=== PATIENT | male | born 1945 | race Caucasian/White ===

== ENCOUNTER 2018-07-26 09:19 | Day surgery (SDC) | payer MEDICARE, OTHER ==
[~2018-07-26] VITALS: Ht 172.7 cm; Wt 75.8 kg
[2018-07-26] VITALS (9 sets, daily range): BP systolic 119–143; BP diastolic 71–87
[2018-07-26] MEDS ORDERED: diphenhydrAMINE 25mg capsule PO PRN (09:45)
[2018-07-26] MEDS ORDERED: sod bicarbonate 150mEq in D5W 1,150 ML IV ONE (09:45)
[2018-07-26 10:38] LABS: BASOPHILS % (AUTO) 0.4 % (0-1); EOSINOPHILS # (AUTO) 0.2 X10'3 (0-0.9); EOSINOPHILS % (AUTO) 3.2 % (0-6); HEMATOCRIT 48.4 % (42.0-52.0); HEMOGLOBIN 16.4 g/dl (14.0-17.9); LYMPHOCYTES # (AUTO) 1.4 X10'3 (1.1-4.8); MEAN CORPUSCULAR VOLUME 94.2 FL (78-98); MEAN PLATELET VOLUME 7.5 FL (7.4-10.4); MONOCYTES # (AUTO) 0.6 X10'3 (0-0.9); MONOCYTES % (AUTO) 10.1 % (2-12); NEUTROPHILS % (AUTO) 64.3 % (42-75); PLATELET COUNT 168 X10'3 (140-440); RED BLOOD COUNT 5.13 X10'6 (4.70-6.10); RED CELL DISTRIBUTION WIDTH 13.6 % (11.5-14.5); WHITE BLOOD COUNT 6.2 X10'3 (4.5-11.0)
[2018-07-26 10:48] LABS: ALBUMIN 3.8 G/DL (3.4-5.0); ANION GAP 11 (8-16); BLOOD UREA NITROGEN 24 MG/DL (7-18); BUN/CREATININE RATIO 21.6 (5.4-32.0); CALCIUM 9.2 MG/DL (8.5-10.1); CHLORIDE 104 MMOL/L (99-107); CREATININE 1.11 MG/DL (0.60-1.10); GLUCOSE 105 MG/DL (70-104); MAGNESIUM 2.3 MG/DL (1.5-2.4); POTASSIUM 4.5 MMOL/L (3.5-5.1); SODIUM 142 MMOL/L (135-145); TOTAL CARBON DIOXIDE 27.1 MMOL/L (24-32); eGFR 65 ML/MIN
[2018-07-26 10:49] LABS: INR 1.2 INR; PROTHROMBIN TIME 11.6 SECONDS (9.0-12.0)
[2018-07-26] MEDS ORDERED: iohexol 350 MG/1 ML 200ml bottle ONE (11:18)
[2018-07-26] MEDS ORDERED: LIDOcaine 1% (10mg/ml)w/preservative injection 20ml MDV ONE (11:18)
[2018-07-26] MEDS ORDERED: [UNRECOGNIZED DRUG - OTHER] PO (11:26)
[2018-07-26] MEDS ORDERED: TEST5GEL2 TOP (11:26)
[2018-07-26] MEDS ORDERED: ATOR10TA PO (11:26)
[2018-07-26] MEDS ORDERED: RIVA20TA PO (11:26)
[2018-07-26] MEDS ORDERED: MAGN400C PO (11:26)
[2018-07-26] MEDS ORDERED: FAMO40TA73 PO (11:26)
[2018-07-26] MEDS ORDERED: LISI-604 PO (11:26)
[2018-07-26] MEDS ORDERED: EZET10TA13 PO (11:26)
[2018-07-26] MEDS ORDERED: ASPI-1265 PO (11:26)
[2018-07-26] MEDS ORDERED: midazolam 2 mg/2 ml injection ONE ×2 (11:48→13:38)
[2018-07-26] MEDS ORDERED: proCHLORperazine 10 MG/2 ml inj ONE (11:48)
[2018-07-26] MEDS ORDERED: fentaNYL/PF 50MCG/1 ML 2ML syringe ONE (11:49)
[2018-07-26] MEDS ORDERED: heparin 1,000unit/ml 10ml vial 10 ML ONE (12:12)
== END 2018-07-26 17:48 | disposition home or self-care (01) ==
LOC: SSTAY O 09:19
PROVIDERS: ATTEND Internal Medicine Cardiovascular Disease
DX: I70.212 Atherosclerosis of native arteries of extremities with intermittent claudication, left leg (principal); I25.10 Atherosclerotic heart disease of native coronary artery without angina pectoris; I10 Essential (primary) hypertension; I25.2 Old myocardial infarction; Z95.5 Presence of coronary angioplasty implant and graft; I25.5 Ischemic cardiomyopathy; Z79.01 Long term (current) use of anticoagulants
CPT/HCPCS: 36415; 37227; 80048; 83735; 85025; 85610; 99152; 99153; C1876; J0780; J1644; J2001; J2250; J3010; Q0163; Q9967; A4620; C1714; C1725; C1760; C1769; C1887; C1894; C2623

== ENCOUNTER 2022-03-21 06:30 | Day surgery (SDC) | payer MEDICARE, OTHER ==
[~2022-03-21] VITALS: Ht 170.2 cm; Wt 71.5 kg
[2022-03-21] VITALS (9 sets, daily range): BP systolic 119–149; BP diastolic 70–90
[~2022-03-21 06:30] MED LIST: ASPI-1265 PO; ATOR10TA PO; FAMO40TA73 PO; LISI5TAB22 PO; MAGN400C PO; RIVA20TA PO; TEST5GEL2 TOP; ZET10T PO; [UNRECOGNIZED DRUG - OTHER] PO
[2022-03-21] MEDS ORDERED: cefazolin/dext.iso 2gm/100ml 100 ML IV ONE (06:50)
[2022-03-21] MEDS ORDERED: VANCOMYCIN 1,500MG in normal saline IV soln 300 ML IV ONE (06:55)
[2022-03-21] MEDS ORDERED: CLOP75TA15 PO (07:10)
[2022-03-21] MEDS ORDERED: LOSA25TA41 PO (07:10)
[2022-03-21] MEDS ORDERED: BISO10TA6 (07:11)
[2022-03-21] MEDS ORDERED: SILD50TA PO ×2 (07:13→07:21)
[2022-03-21] MEDS ORDERED: MULT-1085 PO (07:14)
[2022-03-21] MEDS ORDERED: VITAMIN D (07:15)
[2022-03-21] MEDS ORDERED: ASCO-139 PO (07:16)
[2022-03-21] MEDS ORDERED: UBID100C16 PO (07:16)
[2022-03-21 07:35] LABS: BASOPHILS % (AUTO) 0.6 % (0-1); EOSINOPHILS # (AUTO) 0.4 X10'3 (0-0.9); EOSINOPHILS % (AUTO) 5.8 % (0-6); HEMATOCRIT 45.5 % (42.0-52.0); HEMOGLOBIN 15.2 g/dl (14.0-17.9); LYMPHOCYTES # (AUTO) 1.8 X10'3 (1.1-4.8); LYMPHOCYTES % (AUTO) 24.7 % (21-51); MEAN CORPUSCULAR HEMOGLOBIN 31.6 PG (27.0-31.0); MEAN CORPUSCULAR HGB CONC 33.3 g/dL (33.0-36.5); MEAN PLATELET VOLUME 7.5 FL (7.4-10.4); MONOCYTES # (AUTO) 0.8 X10'3 (0-0.9); NEUTROPHILS # (AUTO) 4.2 X10'3 (1.8-7.7); NEUTROPHILS % (AUTO) 57.9 % (42-75); PLATELET COUNT 173 X10'3 (140-440); RED CELL DISTRIBUTION WIDTH 13.7 % (11.5-14.5); WHITE BLOOD COUNT 7.3 X10'3 (4.5-11.0)
[2022-03-21 07:58] LABS: ALBUMIN 3.9 G/DL (3.4-5.0); ANION GAP 9 (8-16); BLOOD UREA NITROGEN 28 MG/DL (7-18); BUN/CREATININE RATIO 24.1 (5.4-32.0); CHLORIDE 104 MMOL/L (99-107); CHOL/HDL RATIO 2.2 (0.00-4.99); CHOLESTEROL 88 MG/DL (0-200); CREATININE 1.16 MG/DL (0.60-1.10); GLUCOSE 102 MG/DL (70-104); HDL CHOLESTEROL 40 MG/DL (35-60); LDL CHOLESTEROL 39 MG/DL (50-100); MAGNESIUM 2.5 MG/DL (1.5-2.4); POTASSIUM 4.4 MMOL/L (3.5-5.1); SODIUM 139 MMOL/L (135-145); TRIGLYCERIDES 89 MG/DL (20-135); eGFR 61 ML/MIN
[2022-03-21] MEDS ORDERED: LIDOCAINE 2% w/EPI 1:100:000 30mL injection MDV**cath lab 1 only ONE (08:46)
[2022-03-21] MEDS ORDERED: fentaNYL/PF 50MCG/1 ML 2ML syringe ONE (08:46)
[2022-03-21] MEDS ORDERED: vancomycin 1,000mg inj ONE (08:46)
[2022-03-21] MEDS ORDERED: midazolam 1 mg/ML 2ml injection ONE ×2 (08:46→09:47)
[2022-03-21] MEDS ORDERED: normal saline 1,000 ML IV SCH (10:45)
[2022-03-21] MEDS ORDERED: diphenhydrAMINE 50 mg/ml inj IM ONE (11:20)
[2022-03-21] MEDS ORDERED: diphenhydrAMINE 50 mg/ml inj IV ONE (11:40)
== END 2022-03-21 12:52 | disposition home or self-care (01) ==
LOC: SSTAY O 06:30
PROVIDERS: ATTEND Internal Medicine Cardiovascular Disease
DX: Z45.02 Encounter for adjustment and management of automatic implantable cardiac defibrillator (principal); I42.0 Dilated cardiomyopathy; I25.5 Ischemic cardiomyopathy; I25.10 Atherosclerotic heart disease of native coronary artery without angina pectoris; I42.9 Cardiomyopathy, unspecified; Z79.01 Long term (current) use of anticoagulants; Z79.899 Other long term (current) drug therapy; E78.00 Pure hypercholesterolemia, unspecified; I73.9 Peripheral vascular disease, unspecified; Z98.890 Other specified postprocedural states; Z88.8 Allergy status to other drugs, medicaments and biological substances
CPT/HCPCS: 33264; 36415; 80048; 80061; 83735; 85025; 85610; 93005; 99152; 99153; C1882; J1200; J2250; J3010; J3370; J3490; J7030; J7040; A4620; A6258

== ENCOUNTER 2022-05-02 11:41 | Inpatient (IN) | payer MEDICARE, OTHER ==
[2022-04-30 12:04] LABS: BASOPHILS % (AUTO) 0.4 % (0-1); EOSINOPHILS # (AUTO) 0.3 X10'3 (0-0.9); EOSINOPHILS % (AUTO) 3.6 % (0-6); LYMPHOCYTES # (AUTO) 1.8 X10'3 (1.1-4.8); LYMPHOCYTES % (AUTO) 22.6 % (21-51); MEAN CORPUSCULAR HEMOGLOBIN 31.4 PG (27.0-31.0); MEAN CORPUSCULAR HGB CONC 33.3 g/dL (33.0-36.5); MEAN CORPUSCULAR VOLUME 94.3 FL (78-98); MEAN PLATELET VOLUME 7.6 FL (7.4-10.4); MONOCYTES # (AUTO) 0.8 X10'3 (0-0.9); MONOCYTES % (AUTO) 10.1 % (2-12); NEUTROPHILS # (AUTO) 5.1 X10'3 (1.8-7.7); NEUTROPHILS % (AUTO) 63.3 % (42-75); PRE OP HEMATOCRIT 46.4 % (42.0-52.0); PRE OP HEMOGLOBIN 15.5 g/dL (14.0-17.9); PRE OP PLATELET COUNT 188 X10'3 (140-440); RED BLOOD COUNT 4.92 X10'6 (4.70-6.10); RED CELL DISTRIBUTION WIDTH 13.6 % (11.5-14.5)
[2022-04-30 12:06] LABS: ALBUMIN/GLOBULIN RATIO 1.3 (1.1-1.5); ALKALINE PHOSPHATASE 50 IU/L (46-116); BLOOD UREA NITROGEN 26 MG/DL (7-18); BUN/CREATININE RATIO 25.2 (5.4-32.0); CHLORIDE 104 MMOL/L (99-107); CREATININE 1.03 MG/DL (0.60-1.10); PRE OP ALT 40 U/L (30-65); PRE OP ANION GAP 9 (8-16); PRE OP AST 38 U/L (10-37); PRE OP BILIRUB, TOTAL 0.6 MG/DL (0.0-1.0); PRE OP GLUCOSE 106 MG/DL (70-104); PRE OP POTASSIUM 4.7 MMOL/L (3.4-5.1); PRE OP SODIUM 140 MMOL/L (135-145); TOTAL CARBON DIOXIDE 27.5 MMOL/L (24-32); TOTAL PROTEIN 7.1 G/DL (6.4-8.2); eGFR 70 ML/MIN
[2022-05-02] VITALS (13 sets, daily range): BP systolic 138–181; BP diastolic 59–100
[~2022-05-02] VITALS: Ht 170.2 cm; Wt 70.1 kg
[~2022-05-02 11:41] MED LIST changes: +ASCO-139 PO; -ASPI-1265 PO; -ATOR10TA PO; +BISO10TA6; +CHOL500050 PO; +CLOP75TA15 PO; -LISI5TAB22 PO; +MULT-1085 PO; +ROSU20TA2 PO; +SILD50TA PO; +UBID100C16 PO; -[UNRECOGNIZED DRUG - OTHER] PO; +ceFAZolin inj. 2,000 MG in dextrose 5%-water 100 ML IV ONE; +famotidine 20mg tablet PO ONE; +metoprolol tartrate 12.5mg (1/2 tablet) PO ONE; +ringers solution, lacted 1,000 ML IV SCH
[2022-05-02] MEDS ORDERED: heparin 10,000 units/1 ML INJ ONE (18:17)
[2022-05-02] MEDS ORDERED: ceFAZolin 1000mg inj ONE (18:17)
[2022-05-02] MEDS ORDERED: iohexol 300 MG/1 ML 50ml polymer ONE (18:32)
[2022-05-02] MEDS ORDERED: midazolam 1 mg/ML 2ml injection ONE (18:34)
[2022-05-02] MEDS ORDERED: fentaNYL/PF 50MCG/1 ML 2ML syringe ONE (18:34)
[2022-05-02] MEDS ORDERED: propofol inj 20 ML IV ONE (18:35)
[2022-05-02] MEDS ORDERED: meperidine/PF 25mg/ml syringe IV PRN ×3 (19:40)
[2022-05-02] MEDS ORDERED: ringers solution, lacted 1,000 ML IV SCH (19:40)
[2022-05-02] MEDS ORDERED: morphine 2 MG/ML inj. syringe IV PRN (19:40)
[2022-05-02] MEDS ORDERED: ondansetron/PF 4mg/2ml inj IV PRN ×2 (19:40→20:50)
[2022-05-02] MEDS ORDERED: proCHLORperazine 10 MG/2 ml inj IV PRN (19:40)
[2022-05-02] MEDS ORDERED: dexamethasone sod phosphate 4mg/ml inj. ONE (20:31)
[2022-05-02] MEDS ORDERED: heparin 1,000unit/ml 10ml vial 10 ML ONE (20:31)
[2022-05-02] MEDS ORDERED: albumin (Human) 5% 250ml 250 ML IV ONE (20:48)
[2022-05-02] MEDS ORDERED: HYDROcodone/acetaminophen 5mg/325mg tablet PO PRN (20:50)
[2022-05-02] MEDS ORDERED: naloxone 0.4 mg/ml inj IV PRN (20:50)
[2022-05-02] MEDS ORDERED: metoclopramide 5 mg/ml inj IV PRN (20:50)
[2022-05-02] MEDS ORDERED: HYDR-3965 PO (20:52)
[2022-05-02] MEDS ORDERED: ezetimibe 10mg tablet PO SCH (21:00)
[2022-05-02] MEDS ORDERED: atorvastatin 20mg tablet PO SCH (21:00)
--- NOTE | 2022-05-02 21:23 | NUR ---
Received from OR via , accompanied by Anesthesiologist DR ESPINOSA and report given by Anesthesiolgist. VSS, PATIENT ON MASK AT 10 LITERS, IV 18G ON R WRIST. DRESSING WITH STERI STRIPS ON RIGHT GORIN TENDER WITH MINIMAL BLOOD, AND ARTLINE IN LEFT WRIST. Addendum: 05/02/22 at 2125 by Cori Tapia RN Amended: Links added.
[2022-05-02] MEDS: morphine 4 MG/ML inj SYRINge IV PRN (21:39)
--- NOTE | 2022-05-02 22:02 | NUR ---
PATIENT MEETS DISCHARGE CRITERIA.VSS. PATIENT ALERT AND ORIENTED, BUT TEARFUL. HIS STATES THIS IS COMMON FOR HIM UNDER ANESTHESIA. LR RUNNING 100ML/HER. DRESSING ON RIGHT GROIN SOFT AND INTACT, NO MORE BLEEDING. PATIENT STATES NO PAIN JUST SOME DISCOMFORT. GAVE REPORT TO KRYSTAL CEDILLO ANSWERED HER QUESTIONS AND UPDATED HER ON HIS V/S. RN AT BEDSIDE BED LOWERED AND LOCKED. Addendum: 05/02/22 at 2218 by Cori Tapia RN Amended: Links added.
--- NOTE | 2022-05-02 22:05 | NUR ---
Received pt from RR in bed; report received, questions answered; pt awake/alert; at bedside; pt placed on monitor, SR, AL w/stable BP; R groin incision w/steristrips and opsite of incision; sm amt of bloody oozing; sm hematoma noted below incision, edges marked. Feet warm bilat; strong doppler pulses.
--- NOTE | 2022-05-02 23:00 | NUR ---
Pt voided w/o problems; medicated w/norco for 3/10 pain; no change in R groin hematoma.
[2022-05-02] MEDS: ceFAZolin 1GM/D5W- ADD-VANTAGE 50 ML IV SCH (23:46)
[2022-05-03] VITALS (14 sets, daily range): BP systolic 108–144; BP diastolic 59–83
[2022-05-03] MEDS: morphine 4 MG/ML inj SYRINge IV PRN (00:14)
--- NOTE | 2022-05-03 00:15 | NUR ---
Pt c/o increasing R groin pain; noted new hematoma above incision site; Dr. Allen notified; ~10 minutes of gentle pressure at site and #5 sandbag to site per Dr. Gerber orders; medicated w/morphine for severe pain from sandbag and elevated BP.
--- NOTE | 2022-05-03 02:14 | NUR ---
Pt awake, no complaints of pain; R groin hematoma much softer; still w/good doppler pulse R foot; sand bag remains on groin incision.
[2022-05-03 02:33] LABS: BASOPHILS % (AUTO) 0.2 % (0-1); EOSINOPHILS % (AUTO) 0.1 % (0-6); HEMATOCRIT 41.5 % (42.0-52.0); HEMOGLOBIN 13.6 g/dl (14.0-17.9); LYMPHOCYTES # (AUTO) 0.4 X10'3 (1.1-4.8); LYMPHOCYTES % (AUTO) 5.7 % (21-51); MEAN CORPUSCULAR HEMOGLOBIN 31.1 PG (27.0-31.0); MEAN CORPUSCULAR HGB CONC 32.7 g/dL (33.0-36.5); MEAN PLATELET VOLUME 7.8 FL (7.4-10.4); MONOCYTES # (AUTO) 0.1 X10'3 (0-0.9); NEUTROPHILS # (AUTO) 6.8 X10'3 (1.8-7.7); PLATELET COUNT 164 X10'3 (140-440); RED BLOOD COUNT 4.37 X10'6 (4.70-6.10); RED CELL DISTRIBUTION WIDTH 13.6 % (11.5-14.5); WHITE BLOOD COUNT 7.3 X10'3 (4.5-11.0)
[2022-05-03 02:49] LABS: ALBUMIN 3.6 G/DL (3.4-5.0); ANION GAP 11 (8-16); BLOOD UREA NITROGEN 22 MG/DL (7-18); BUN/CREATININE RATIO 21.8 (5.4-32.0); CALCIUM 8.7 MG/DL (8.5-10.1); CHLORIDE 104 MMOL/L (99-107); CREATININE 1.01 MG/DL (0.60-1.10); GLUCOSE 153 MG/DL (70-104); POTASSIUM 4.4 MMOL/L (3.5-5.1); SODIUM 138 MMOL/L (135-145); TOTAL CARBON DIOXIDE 22.8 MMOL/L (24-32); eGFR 72 ML/MIN
--- NOTE | 2022-05-03 05:05 | NUR ---
AM labs stable; cuff and AL pressure close, AL d/c'd; R foot slightly cooler than L; doppler pulse L>R; R groin w/mod brusing but hematoma at incision soft, bloody ooze under opsite. Denies pain
--- NOTE | 2022-05-03 06:25 | NUR ---
No changes; report given to Jp, questions answered.
[2022-05-03] MEDS: ceFAZolin 1GM/D5W- ADD-VANTAGE 50 ML IV SCH (07:37)
[2022-05-03] MEDS ORDERED: bisoprolol 5mg tablet PO SCH (08:00)
[2022-05-03] MEDS ORDERED: enoxaparin 30mg/0.3ml syringe SQ SCH (08:00)
[2022-05-03] MEDS ORDERED: testosterone 5gm gel packet TD SCH (08:00)
[2022-05-03] MEDS ORDERED: cholecalciferol (vitamin D3) 1,000 unit (25mcg) tablet PO SCH (08:00)
[2022-05-03] MEDS ORDERED: magnesium oxide 400mg tablet PO SCH (08:00)
[2022-05-03] MEDS ORDERED: famotidine 20mg tablet PO SCH (08:00)
[2022-05-03] MEDS ORDERED: ascorbic acid 500mg tablet PO SCH (08:00)
[2022-05-03] MEDS ORDERED: multivitamins, therapeutics tablet PO SCH (08:00)
[2022-05-03] MEDS ORDERED: clopidogrel 75mg tablet PO SCH (11:00)
--- NOTE | 2022-05-03 13:15 | NUR ---
IV DC Pts PIV at rt huynh discontinued; cath tip intact and site covered with small 2x2 occlusive dressing.
--- NOTE | 2022-05-03 13:30 | NUR ---
Note Orientee documentation: I have reviewed and agree with all interventions, assessments performed and documented by Meme CEDILLO. Edna report on patient in room CICU 2011. I received report with Meme CEDILLO (orientee) from Iman CEDILLO and had the opportunity to ask questions and assume patient care.
--- NOTE | 2022-05-03 13:30 | NUR ---
Pt discharged to home with all belongings, in private vehicle, accompanied by . Discharge instructions and medications reviewed. New prescription e-scripted to [facility] on [address]. Pt instructed to follow up with Dr Allen in 2 weeks, phone number provided, as well as to notify his office with any concerns or signs of infection. Signs/symptoms of infection reviewed with patient and patient's . Pt and state understanding and willingness to comply with all discharge instructions. IV DC'd, cannula intact. [facility] by primary RN.
== END 2022-05-03 13:30 | disposition home or self-care (01) | DRG 254 ==
LOC: PAS IN 11:41 → CICU 2S 22:04
PROVIDERS: ADMIT Thoracic Surgery (Cardiothoracic Vascular Surgery); ATTEND Thoracic Surgery (Cardiothoracic Vascular Surgery)
PROC: 04QK0ZZ Repair Right Femoral Artery, Open Approach (ICD-10-PCS; 2022-05-02)
PROC: 04CK0ZZ Extirpation of Matter from Right Femoral Artery, Open Approach (ICD-10-PCS; principal; 2022-05-02 18:32)
DX: I70.211 Atherosclerosis of native arteries of extremities with intermittent claudication, right leg (principal); Z95.1 Presence of aortocoronary bypass graft; S30.1XXA Contusion of abdominal wall, initial encounter; X58.XXXA Exposure to other specified factors, initial encounter; Y93.89 Activity, other specified; Y92.230 Patient room in hospital as the place of occurrence of the external cause; Y99.8 Other external cause status
CPT/HCPCS: 36415; 71046; 80048; 80053; 82948; 85025; 86885; 86900; 86901; 87081; 93005; A4615; A4618; A6213; A6258; A6449; A7000; C1768; G0378; J0690; J1100; J1644; J2250; J2270; J2405; J2704; J2765; J3010; J7040; J7060; J7120; P9045; Q9967

== ENCOUNTER 2022-06-03 14:30 | Outpatient (CLI) | payer MEDICARE, OTHER ==
[~2022-06-03 14:30] MED LIST changes: +AMOX-580 PO; -BISO10TA6; +CHOL100025 PO; -CHOL500050 PO; +METO-395 PO; +NITR0.4T51 SL; +OMEG10006 PO; -ceFAZolin inj. 2,000 MG in dextrose 5%-water 100 ML IV ONE; -famotidine 20mg tablet PO ONE; -metoprolol tartrate 12.5mg (1/2 tablet) PO ONE; -ringers solution, lacted 1,000 ML IV SCH
[2022-06-03 15:29] LABS: BASOPHILS # (AUTO) 0.1 X10'3 (0-0.2); BASOPHILS % (AUTO) 1.1 % (0-1); EOSINOPHILS # (AUTO) 0.2 X10'3 (0-0.9); EOSINOPHILS % (AUTO) 1.9 % (0-6); HEMATOCRIT 40.3 % (42.0-52.0); HEMOGLOBIN 13.5 g/dl (14.0-17.9); LYMPHOCYTES # (AUTO) 1.4 X10'3 (1.1-4.8); LYMPHOCYTES % (AUTO) 13.8 % (21-51); MEAN CORPUSCULAR HEMOGLOBIN 31.8 PG (27.0-31.0); MEAN CORPUSCULAR HGB CONC 33.6 g/dL (33.0-36.5); MEAN CORPUSCULAR VOLUME 94.7 FL (78-98); MEAN PLATELET VOLUME 7.3 FL (7.4-10.4); MONOCYTES # (AUTO) 0.6 X10'3 (0-0.9); MONOCYTES % (AUTO) 6.4 % (2-12); NEUTROPHILS # (AUTO) 7.7 X10'3 (1.8-7.7); NEUTROPHILS % (AUTO) 76.8 % (42-75); PLATELET COUNT 340 X10'3 (140-440); RED BLOOD COUNT 4.26 X10'6 (4.70-6.10); RED CELL DISTRIBUTION WIDTH 14.6 % (11.5-14.5)
[2022-06-03 15:37] LABS: ALBUMIN 3.7 G/DL (3.4-5.0); ANION GAP 10 (8-16); BLOOD UREA NITROGEN 27 MG/DL (7-18); BUN/CREATININE RATIO 21.8 (5.4-32.0); CALCIUM 9.5 MG/DL (8.5-10.1); CHLORIDE 103 MMOL/L (99-107); CREATININE 1.24 MG/DL (0.60-1.10); GLUCOSE 107 MG/DL (70-104); SODIUM 139 MMOL/L (135-145); TOTAL CARBON DIOXIDE 26.5 MMOL/L (24-32); eGFR 57 ML/MIN
[2022-06-03 15:39] LABS: POTASSIUM 4.8 MMOL/L (3.5-5.1)
== END 2022-06-03 23:59 | disposition home or self-care (01) ==
LOC: LAB 14:30
PROVIDERS: ATTEND Thoracic Surgery (Cardiothoracic Vascular Surgery)
DX: I50.1 Left ventricular failure, unspecified (principal); D64.9 Anemia, unspecified
CPT/HCPCS: 36415; 80048; 85025

== ENCOUNTER 2023-09-18 11:22 | Inpatient (IN) | payer MEDICARE, OTHER ==
[~2023-09-18] VITALS: Ht 170.2 cm; Wt 70.0 kg
[~2023-09-18 11:22] MED LIST changes: -AMOX-580 PO; +EZET10TA7 PO; -ZET10T PO
[2023-09-18 12:01] LABS: BASOPHILS % (AUTO) 0.6 % (0-1); EOSINOPHILS # (AUTO) 0.2 X10'3 (0-0.9); EOSINOPHILS % (AUTO) 2.5 % (0-6); HEMATOCRIT 50.5 % (42.0-52.0); HEMOGLOBIN 16.7 g/dl (14.0-17.9); LYMPHOCYTES # (AUTO) 2.3 X10'3 (1.1-4.8); LYMPHOCYTES % (AUTO) 31.9 % (21-51); MEAN CORPUSCULAR HGB CONC 33.1 g/dL (33.0-36.5); MEAN CORPUSCULAR VOLUME 93.5 FL (78-98); MEAN PLATELET VOLUME 8.2 FL (7.4-10.4); MONOCYTES # (AUTO) 0.9 X10'3 (0-0.9); MONOCYTES % (AUTO) 12.2 % (2-12); NEUTROPHILS # (AUTO) 3.7 X10'3 (1.8-7.7); NEUTROPHILS % (AUTO) 52.8 % (42-75); PLATELET COUNT 153 X10'3 (140-440); RED CELL DISTRIBUTION WIDTH 15.1 % (11.5-14.5); WHITE BLOOD COUNT 7.1 X10'3 (4.5-11.0)
[2023-09-18 12:17] LABS: D-DIMER 0.56 MG/L FEU (0-0.50)
[2023-09-18] MEDS: nitroGLYCERIN 1gm ointment UD TP ONE (12:19)
[2023-09-18 12:28] LABS: ALBUMIN 3.4 G/DL (3.4-5.0); ANION GAP 7 (8-16); BLOOD UREA NITROGEN 19 MG/DL (7-18); CALCIUM 8.4 MG/DL (8.5-10.1); CHLORIDE 105 MMOL/L (99-107); CREATININE 1.12 MG/DL (0.60-1.10); GLUCOSE 115 MG/DL (70-104); POTASSIUM 4.2 MMOL/L (3.5-5.1); PRO BRAIN NATRIURETIC PEPTIDE 1532 PG/ML (0-450); SODIUM 138 MMOL/L (135-145); TOTAL CARBON DIOXIDE 25.6 MMOL/L (24-32); eCRCL 50 ML/MIN; eGFR 63 ML/MIN
[2023-09-18] MEDS ORDERED: iohexol 350MG/ML 100ml bottle IV ONE (13:40)
[2023-09-18] MEDS: furosemide 10 MG/1 ML 10ml inj IV ONE (15:30)
[2023-09-18] MEDS: aspirin 325mg tablet PO ONE (16:20)
[2023-09-18] MEDS: clopidogrel 75mg tablet PO ONE (16:20)
[2023-09-18] MEDS: enoxaparin 80mg/0.8ml syringe SUBCUT ONE (16:24)
[2023-09-18] MEDS ORDERED: magnesium 4gm in 100ml NS 100 ML IV PRN (16:45)
[2023-09-18] MEDS ORDERED: acetaminophen 325mg tablet PO PRN (16:45)
[2023-09-18] MEDS ORDERED: magnesium 2GM in 50ml NS 50 ML IV PRN (16:45)
[2023-09-18] MEDS ORDERED: metoprolol tartrate 1mg/ml inj IV PRN (16:45)
[2023-09-18] MEDS ORDERED: magnesium Cl slow-release 64mg tablet PO PRN (16:45)
[2023-09-18] MEDS ORDERED: magnesium hydroxide 30ml (MOM) UD suspension PO PRN (16:45)
[2023-09-18] MEDS ORDERED: potassium Cl 20 mEq SR tablet PO PRN (16:45)
[2023-09-18] MEDS ORDERED: mag hydrox/Alum hydrox/simeth 30ml oral suspension PO PRN (16:45)
[2023-09-18] MEDS ORDERED: ondansetron/PF 4mg/2ml inj IV PRN (16:45)
[2023-09-18] MEDS ORDERED: potassium Cl 40MEQ/1/2NS 520ml 520 ML IV PRN (16:45)
[2023-09-18] MEDS ORDERED: morphine 2 MG/ML inj. syringe IV PRN ×2 (16:45)
[2023-09-18 17:25] LABS: POTASSIUM 4.1 MMOL/L (3.5-5.1)
[2023-09-18] MEDS: heparin 25,000 UNIT/250ml bag 250 ML IV PRN (17:47)
[2023-09-18 17:53] LABS: APTT 33 SECONDS (22-32); INR 1.5 INR; PROTHROMBIN TIME 15.6 SECONDS (9.0-12.0)
[2023-09-18] MEDS: atorvastatin 20mg tablet PO SCH (17:58)
[2023-09-18] MEDS ORDERED: HYDR12.55 PO (18:06)
[2023-09-18] MEDS ORDERED: EZET10TA6 PO (18:06)
[2023-09-18] MEDS ORDERED: TEST5GEL2 TOP (18:06)
[2023-09-18] MEDS: K and/or MAG REPLACEMENT MC SCH (19:52)
[2023-09-18] MEDS: furosemide 10 MG/1 ML 10ml inj IV SCH (20:02)
[2023-09-18] MEDS: docusate sod 100mg capsule PO SCH (20:02)
[2023-09-18 23:40] VITALS: BP 139/89; PULSE 72; RESP 16; RESP 18; TEMP 98.1
[2023-09-19] VITALS (8 sets, daily range): BP systolic 131–152; BP diastolic 73–94; PULSE 58–94; RESP 14–19; TEMP 97.6–97.9; O2SAT 93–97
[2023-09-19] MEDS: MESSAGE TO NURSING IV ONE ×3 (03:31→16:03)
[2023-09-19 05:47] LABS: BASOPHILS % (AUTO) 0.5 % (0-1); EOSINOPHILS # (AUTO) 0.2 X10'3 (0-0.9); EOSINOPHILS % (AUTO) 2.2 % (0-6); HEMATOCRIT 53.5 % (42.0-52.0)
[2023-09-19 05:48] LABS: BASOPHILS # (AUTO) 0.1 X10'3 (0-0.2); HEMOGLOBIN 17.7 g/dl (14.0-17.9); LYMPHOCYTES % (AUTO) 20.5 % (21-51); MEAN CORPUSCULAR HEMOGLOBIN 30.8 PG (27.0-31.0); MEAN CORPUSCULAR HGB CONC 33.2 g/dL (33.0-36.5); MEAN PLATELET VOLUME 8.2 FL (7.4-10.4); MONOCYTES % (AUTO) 10.3 % (2-12); NEUTROPHILS # (AUTO) 6.6 X10'3 (1.8-7.7); NEUTROPHILS % (AUTO) 66.5 % (42-75); PLATELET COUNT 149 X10'3 (140-440); RED BLOOD COUNT 5.75 X10'6 (4.70-6.10); RED CELL DISTRIBUTION WIDTH 14.7 % (11.5-14.5); WHITE BLOOD COUNT 9.9 X10'3 (4.5-11.0)
[2023-09-19 06:04] LABS: ALANINE AMINOTRANSFERASE 42 U/L (12-78); ALBUMIN 3.5 G/DL (3.4-5.0); ALKALINE PHOSPHATASE 48 IU/L (46-116); ANION GAP 9 (8-16); ASPARTATE AMINO TRANSFERASE 37 U/L (10-37); BILIRUBIN,TOTAL 1.1 MG/DL (0.1-1.0); BLOOD UREA NITROGEN 22 MG/DL (7-18); BUN/CREATININE RATIO 19.3 (10.0-20.0); CALCIUM 8.8 MG/DL (8.5-10.1); CHLORIDE 101 MMOL/L (99-107); CREATININE 1.14 MG/DL (0.60-1.10); GLUCOSE 93 MG/DL (70-104); POTASSIUM 3.3 MMOL/L (3.5-5.1); SODIUM 138 MMOL/L (135-145); TOTAL CARBON DIOXIDE 28.1 MMOL/L (24-32); TOTAL PROTEIN 7.1 G/DL (6.4-8.2); eCRCL 49 ML/MIN; eGFR 62 ML/MIN
[2023-09-19] MEDS: aspirin 81mg, enteric-coated 1 TAB TABLET.DR PO SCH (09:04)
[2023-09-19] MEDS: potassium Cl 20 mEq SR tablet PO PRN (09:04)
[2023-09-19] MEDS: heparin 25,000 UNIT/250ml bag 250 ML IV PRN (09:36)
[2023-09-19] MEDS ORDERED: nitroGLYCERIN 0.4mg SUBLingual tab SL PRN (13:05)
[2023-09-19] MEDS: clopidogrel 75mg tablet PO SCH (13:49)
[2023-09-19] MEDS: spironolactone 25 MG tablet PO SCH (15:38)
[2023-09-19] MEDS: sacubitril/valsartan 24mg-26mg tablet PO SCH (15:38)
[2023-09-19] MEDS: ezetimibe 10mg tablet PO SCH (22:23)
[2023-09-19] MEDS: atorvastatin 20mg tablet PO SCH (22:26)
[2023-09-20] MEDS: MESSAGE TO NURSING IV ONE ×2 (00:24→08:40)
[2023-09-20] MEDS: heparin 10,000 units/1 ML INJ IV PRN (00:29)
[2023-09-20 02:00] VITALS: BP 119/74; PULSE 77; RESP 17; TEMP 97.5; O2SAT 97
[2023-09-20 07:00] VITALS: BP 113/78; PULSE 75; RESP 16; TEMP 98.2; O2SAT 97
[2023-09-20 07:25] LABS: EOSINOPHILS # (AUTO) 0.2 X10'3 (0-0.9); LYMPHOCYTES # (AUTO) 2.8 X10'3 (1.1-4.8); MEAN CORPUSCULAR HEMOGLOBIN 31.3 PG (27.0-31.0); MEAN CORPUSCULAR HGB CONC 33.5 g/dL (33.0-36.5)
[2023-09-20 07:26] LABS: BASOPHILS % (AUTO) 0.4 % (0-1); HEMATOCRIT 58.5 % (42.0-52.0); LYMPHOCYTES % (AUTO) 27.8 % (21-51); MEAN CORPUSCULAR VOLUME 93.5 FL (78-98); MEAN PLATELET VOLUME 8.6 FL (7.4-10.4); MONOCYTES % (AUTO) 10.3 % (2-12); NEUTROPHILS % (AUTO) 59.5 % (42-75); PLATELET COUNT 174 X10'3 (140-440); RED BLOOD COUNT 6.26 X10'6 (4.70-6.10); RED CELL DISTRIBUTION WIDTH 15.2 % (11.5-14.5); WHITE BLOOD COUNT 10.1 X10'3 (4.5-11.0)
[2023-09-20 07:38] LABS: ALANINE AMINOTRANSFERASE 42 U/L (12-78); ALBUMIN 3.8 G/DL (3.4-5.0); ALBUMIN/GLOBULIN RATIO 0.9 (1.1-1.5); ALKALINE PHOSPHATASE 59 IU/L (46-116); ANION GAP 12 (8-16); ASPARTATE AMINO TRANSFERASE 38 U/L (10-37); BILIRUBIN,TOTAL 1.3 MG/DL (0.1-1.0); BLOOD UREA NITROGEN 25 MG/DL (7-18); BUN/CREATININE RATIO 19.4 (10.0-20.0); CALCIUM 9.2 MG/DL (8.5-10.1); CHLORIDE 98 MMOL/L (99-107); CREATININE 1.29 MG/DL (0.60-1.10); GLUCOSE 124 MG/DL (70-104); MAGNESIUM 2.2 MG/DL (1.5-2.4); PHOSPHORUS 3.7 MG/DL (2.3-4.5); SODIUM 136 MMOL/L (135-145); TOTAL CARBON DIOXIDE 26.4 MMOL/L (24-32); eCRCL 43 ML/MIN; eGFR 54 ML/MIN
[2023-09-20 07:41] LABS: HEMOGLOBIN 19.6 g/dl (14.0-17.9)
[2023-09-20 08:00] VITALS: RESP 17; O2SAT 96
[2023-09-20 08:08] LABS: INR 1.2 INR; PROTHROMBIN TIME 13.1 SECONDS (9.0-12.0)
[2023-09-20 10:30] VITALS: BP 127/71; PULSE 78
[2023-09-20] MEDS: EMPAGLIFLOZIN 10 MG TABLET PO SCH (10:32)
[2023-09-20] MEDS: carVEDilol 3.125mg tablet PO SCH (10:32)
[2023-09-20 11:00] VITALS: BP 127/71; PULSE 71; RESP 18; TEMP 97.6; O2SAT 97
[2023-09-20] MEDS ORDERED: SPIR25TA PO (13:19)
[2023-09-20] MEDS ORDERED: COR3.125T PO (13:19)
[2023-09-20] MEDS ORDERED: SACU1TAB PO (13:19)
[2023-09-20] MEDS ORDERED: EMPA10TA PO (13:19)
[2023-09-20] MEDS ORDERED: ASPI-1071 PO (13:19)
== END 2023-09-20 15:15 | disposition home or self-care (01) | DRG 280 ==
LOC: ER 11:22 → ED HOLD 16:52 → PCU 3S 09-19 00:06
PROVIDERS: ADMIT Family Medicine; ATTEND Family Medicine
PROC: B32T1ZZ Computerized Tomography (CT Scan) of Left Pulmonary Artery using Low Osmolar Contrast (ICD-10-PCS; principal; 2023-09-18)
PROC: B3201ZZ Computerized Tomography (CT Scan) of Thoracic Aorta using Low Osmolar Contrast (ICD-10-PCS; 2023-09-18)
PROC: B32S1ZZ Computerized Tomography (CT Scan) of Right Pulmonary Artery using Low Osmolar Contrast (ICD-10-PCS; 2023-09-18)
DX: I13.0 Hypertensive heart and chronic kidney disease with heart failure and stage 1 through stage 4 chronic kidney disease, or unspecified chronic kidney disease (principal); I50.23 Acute on chronic systolic (congestive) heart failure; I21.A1 Myocardial infarction type 2; N17.9 Acute kidney failure, unspecified; Z66 Do not resuscitate; R09.02 Hypoxemia; E78.5 Hyperlipidemia, unspecified; G47.33 Obstructive sleep apnea (adult) (pediatric); N18.2 Chronic kidney disease, stage 2 (mild); F17.290 Nicotine dependence, other tobacco product, uncomplicated; I73.9 Peripheral vascular disease, unspecified; I25.118 Atherosclerotic heart disease of native coronary artery with other forms of angina pectoris; I25.2 Old myocardial infarction; Z95.0 Presence of cardiac pacemaker; Z88.8 Allergy status to other drugs, medicaments and biological substances; Z88.1 Allergy status to other antibiotic agents; Z88.2 Allergy status to sulfonamides; Z79.899 Other long term (current) drug therapy; Z79.02 Long term (current) use of antithrombotics/antiplatelets
CPT/HCPCS: 36415; 71045; 71275; 80048; 80053; 83735; 83880; 84100; 84132; 84484; 85025; 85379; 85610; 85730; 87081; 93005; 93306; 96374; 99285; G0378; J1644; J1650; J1940; J3490; J7040; Q9967

== ENCOUNTER 2025-03-27 09:31 | Day surgery (SDC) | payer MEDICARE, OTHER ==
--- NOTE | 2025-03-24 08:55 | ELECTROCARDIOGRAPH REPORT ---
[facility] Test Date: 2025-03-24 Test Time: 08:51:48 Pat Name: CHUCK PARK Department: [facility] Patient ID: [id number] Room: Gender: M Research Fellow: ALEX : 1945 Requested By: YG QUINONES Order Number: [id number] Reading MD: Dr. Bhanu Garza Measurements Intervals Roebling Rate: 81 P: 47 OH: 192 QRS: -72 QRSD: 156 T: 109 QT: 443 QTc: 515 Interpretive Statements Atrial-ventricular dual-paced rhythm No further analysis attempted due to paced rhythm Electronically Signed On 03-27-2025 7:11:[address] Bhanu Garza Please click the below link to view image of tracing.
[2025-03-24 09:21] LABS: MEAN PLATELET VOLUME 8.1 FL (7.4-10.4); RED CELL DISTRIBUTION WIDTH 15.0 % (11.5-14.5)
[2025-03-24 09:32] LABS: INR 1.2 INR
[2025-03-24 09:41] LABS: CREATININE 1.32 MG/DL (0.60-1.10); TOTAL CARBON DIOXIDE 29.8 MMOL/L (24-32); eCRCL 42 ML/MIN; eGFR 52 ML/MIN
[2025-03-27] VITALS (12 sets, daily range): BP systolic 130–150; BP diastolic 77–95; PULSE 58–70; RESP 11–18; O2SAT 93–100
[~2025-03-27] VITALS: Ht 170.2 cm; Wt 71.4 kg
[~2025-03-27 09:31] MED LIST changes: -ASCO-139 PO; -CHOL100025 PO; -CLOP75TA15 PO; +EZET10TA6 PO; -EZET10TA7 PO; -FAMO40TA73 PO; +FAMO40TA87 PO; +HYDR12.55 PO; -MAGN400C PO; -MULT-1085 PO; -OMEG10006 PO; +TEST2.5G5 TOP; -TEST5GEL2 TOP; -UBID100C16 PO; +sodium bicarbonate 1meq/ml syr 150 ML in dextrose 5%-water 1,000 ML IV ONE
[2025-03-27] MEDS ORDERED: midazolam 1 mg/ML 2ml injection ONE ×2 (12:28→12:59)
[2025-03-27] MEDS ORDERED: fentaNYL/PF 50MCG/1 ML 2ML syringe ONE (12:28)
[2025-03-27] MEDS ORDERED: heparin 1,000unit/ml 10ml vial 10 ML ONE (12:28)
[2025-03-27] MEDS ORDERED: iohexol 350 MG/ML 50ML vial IV ONE (12:28)
[2025-03-27] MEDS ORDERED: LIDOcaine 1% 30ml preserv. free vial ONE (12:28)
[2025-03-27] MEDS: sodium bicarbonate 1meq/ml syr 150 ML in dextrose 5%-water 1,000 ML IV ONE (12:29)
[2025-03-27] MEDS ORDERED: normal saline 1000ml 1,000 ML IV SCH (14:05)
--- NOTE | 2025-03-27 14:46 | CARDIOLOGY REPORT ---
DATE OF SERVICE: 03/27/2025 DICTATING PHYSICIAN: YG QUINONES DO CARDIAC CATHETERIZATION REPORT REFERRING PHYSICIAN: Yg Quinones DO. CLINICAL HISTORY: This 79-year-old man has an extensive coronary artery disease history. He had inferior wall MIs in 1998 and 2006. He has had multiple coronary interventions with the last one being in 2006. He has developed a cardiomyopathy and has a biventricular pacemaker which was first placed in 12/2010. In late 2010, he had an ejection fraction of 30% and coronary disease was severe enough that he was referred to bypass grafting on 06/21/2011. He received a GLASS to the LAD and a vein graft to the circumflex system. He is recently experiencing exertional chest discomfort. Because of his history and the fact that he does not have normal left ventricular function, a decision was made to proceed to cardiac catheterization. PROCEDURES PERFORMED: * Left heart catheterization. * Left ventriculography. * Selective coronary arteriography. * Selective opacification of bypass grafts. * Percutaneous arteriotomy closure (MYNX) ANESTHESIA: 30 minutes conscious sedation and supervision. DESCRIPTION OF PROCEDURE: He was sedated with fentanyl and Versed. A 7-[place] Lucian sheath was successfully placed in the right common femoral artery. Left heart catheterization and left ventriculography were performed using a 6-St Lucian pigtail catheter. Coronary arteriography was performed using 6-[place] Lucian #4 left and right Leonor catheters. Both the saphenous vein graft to the circumflex coronary and a GLASS graft to the LAD were successfully opacified using the 6-St Lucian right Leonor catheter. The femoral sheath was removed and hemostasis was achieved with a MyNX device. HEMODYNAMIC DATA: The left ventricular end-diastolic pressure was 26 mmHg. There was no gradient across the aortic valve or no significant gradient across the aortic valve. LEFT VENTRICULOGRAM: The left ventriculogram was technically satisfactory. The left ventricle was markedly dilated. Only the posterior basal segments were dar. The EF was about 10%. CORONARY ARTERIOGRAPHY: The coronary arteriograms are technically satisfactory. The patient probably did have a right dominant system. LEFT CORONARY ARTERY: The left coronary was composed of a small highly diseased left main with about an 80% stenosis. The origin of the LAD was also narrowed by about 80-90%. The LAD was occluded proximally. There was a long small caliber diagonal branch and no other side branches were noted because of the occlusion. CIRCUMFLEX CORONARY ARTERY: The circumflex coronary was occluded proximally. RIGHT CORONARY ARTERY: The right coronary was a large main stem vessel. There was a medium to large posterior descending branch and 2 small posterolateral branches. In the proximal right coronary, there was about a 30-40% narrowing in the mid vessel. There was a similar 30-40% narrowing, but there were no obstructive lesions in the right coronary artery. SELECTIVE OPACIFICATION OF BYPASS GRAFTS: A saphenous vein graft leading to the circumflex system opacified 2 large obtuse marginal branches. There is a patent GLASS graft to the mid LAD. There were no obstructive lesions in the graft or in the [place] vessel beyond the distal anastomosis. CONCLUSIONS: 1. Severe obstructive coronary artery disease manifested as an 80% left main and total occlusions proximally of the LAD and circumflex coronary arteries. 2. His bypass grafts are in very good condition. The GLASS to LAD is patent and unobstructed and the saphenous vein graft to the circumflex coronary system supplying 2 obtuse marginal branches was patent. 3. Severely dilated left ventricle with extremely poor left ventricular function. LVEF is estimated to be 10% PLAN: Ongoing medical therapy. YG QUINONES DO TID: [id number] RECEIPT: [id number] NELY/MARIAM MTDD
== END 2025-03-27 17:30 | disposition home or self-care (01) ==
LOC: SSTAY O 09:31
PROVIDERS: ATTEND Internal Medicine Cardiovascular Disease
DX: R07.9 Chest pain, unspecified (principal); I25.10 Atherosclerotic heart disease of native coronary artery without angina pectoris; E78.00 Pure hypercholesterolemia, unspecified; I25.5 Ischemic cardiomyopathy; I73.9 Peripheral vascular disease, unspecified; Z79.01 Long term (current) use of anticoagulants; Z79.899 Other long term (current) drug therapy; Z95.1 Presence of aortocoronary bypass graft; Z95.5 Presence of coronary angioplasty implant and graft; Z98.890 Other specified postprocedural states
CPT/HCPCS: 36415; 80048; 83735; 85025; 85610; 93005; 93459; 99152; A4615; A6258; C1725; C1894; J1644; J2003; J2250; J3010; J3490; J7030; J7070; Q0163; Q9967; Z7610; 99153